=== PATIENT | female | born 1980 | race Caucasian/White ===

== ENCOUNTER 2017-03-02 14:18 | Emergency (ER) | payer OTHER ==
[2017-03-02 15:25] LABS: BASOPHIL 0.3 % (0-2); EOSINOPHIL 3.4 % (0-5); HCT 38.8 % (37.0-47.0); HGB 12.9 g/dl (12.5-16.0); LYMPHOCYTE 43.9 % (15-48); MCH 30.6 pg (25.0-31.0); MCHC 33.2 g/dL (32.0-36.0); MCV 92.2 fL (78.0-100.0); MONOCYTE 8.6 % (0-12); MPV 10.6 fL (6.0-9.5); NEUTROPHIL 43.8 % (41-80); PLT 290 K/uL (150-400); RBC 4.21 M/uL (4.20-5.40); RDW 13.9 % (11.5-14.0)
[2017-03-02 15:26] LABS: BILIRUBIN 1+ mg/dL (NEGATIVE); BLOOD NEGATIVE Ery/uL (NEGATIVE); CLARITY CLEAR (CLEAR); COLOR YELLOW (YELLOW); GLUCOSE (U) NORMAL (NORMAL); KETONE (U) TRACE mg/dL (NEGATIVE); LEUKOCYTES 1+ Leu/uL (NEGATIVE); NITRITE NEGATIVE (NEGATIVE); PROTEIN NEGATIVE (NEGATIVE); SPECIFIC GRAVITY >=1.030 (1.001-1.030); pH 5.5 (5.0-9.0)
[2017-03-02 15:30] LABS: BACTERIA 2+
[2017-03-02 15:45] LABS: ALBUMIN 3.8 g/dL (3.5-5.0); BILIRUBIN - TOTAL 0.3 mg/dL (0.1-1.0); CREATININE 0.8 mg/dL (0.5-1.0); GLOBULIN (CALCULATION) 2.8 g/dL (2.2-4.2); POTASSIUM 3.6 mmol/L (3.5-5.1); TOTAL PROTEIN 6.6 g/dL (6.4-8.3)
== END 2017-03-02 18:27 | disposition home or self-care (01) ==
LOC: FER 14:18
PROVIDERS: Internal Medicine
DX: R10.11 Right upper quadrant pain (principal); G89.29 Other chronic pain; K21.9 Gastro-esophageal reflux disease without esophagitis; F41.9 Anxiety disorder, unspecified; Z79.899 Other long term (current) drug therapy
CPT/HCPCS: 36415; 80053; 81001; 82150; 83690; 85025; J1170; J2175

== ENCOUNTER 2021-08-23 10:09 | Emergency (ER) | payer SELFPAY ==
[2021-08-23 10:51] LABS: BASOPHIL 0.4 % (0-2); EOSINOPHIL 0.6 % (0-5); HCT 48.6 % (37.0-47.0); HGB 16.6 g/dl (12.5-16.0); LYMPHOCYTE 20.1 % (15-48); MCH 33.7 pg (25.0-31.0); MCHC 34.2 g/dL (32.0-36.0); MCV 98.8 fL (78.0-100.0); MPV 10.4 fL (6.0-9.5); NEUTROPHIL 69.5 % (41-80); NRBC 0; PLT 191 K/uL (150-400); RBC 4.92 M/uL (4.20-5.40); RDW 13.4 % (11.5-14.0); WBC 5.1 K/uL (4.0-10.5)
[2021-08-23 11:09] LABS: ALBUMIN 3.4 g/dL (3.4-5.0); BILIRUBIN - TOTAL 0.5 mg/dL (0.2-1.0); BUN/CREAT RATIO (CALC) 9.3 RATIO; CREATININE 0.75 mg/dL (0.51-0.95); GLOBULIN (CALCULATION) 3.9 g/dL; POTASSIUM 2.8 mmol/L (3.5-5.1); TOTAL PROTEIN 7.3 g/dL (6.4-8.2)
[2021-08-23 11:11] LABS: BILIRUBIN 2+ mg/dL (NEGATIVE); BLOOD 3+ Ery/uL (NEGATIVE); CLARITY CLEAR (CLEAR); COLOR YELLOW (YELLOW); GLUCOSE (U) NORMAL (NORMAL); LEUKOCYTES TRACE Leu/uL (NEGATIVE); NITRITE POSITIVE (NEGATIVE); PROTEIN 2+ mg/dL (NEGATIVE); pH 6.5 (5.0-9.0)
[2021-08-23 11:21] LABS: BACTERIA 2+; URINARY RBC TNTC
[2021-08-23 11:28] LABS: CORONAVIRUS 2019 SARS-COV-2 NEGATIVE (NEGATIVE); INFLUENZA A NAA NEGATIVE (NEGATIVE)
[2021-08-23] MEDS ORDERED: POTASSIUM CHLO20 ME1 PO (12:43)
[2021-08-23] MEDS ORDERED: IMODIUM2 MG PO (12:43)
[2021-08-23] MEDS ORDERED: CEPHALEXIN500 MG PO (12:43)
[2021-08-23] MEDS ORDERED: ONDANSETRON ODT4 MG PO (12:43)
== END 2021-08-23 13:27 | disposition home or self-care (01) ==
LOC: FER 10:09
PROVIDERS: Emergency Medicine
DX: N39.0 Urinary tract infection, site not specified (principal); E87.6 Hypokalemia; R11.2 Nausea with vomiting, unspecified; R19.7 Diarrhea, unspecified; I10 Essential (primary) hypertension; J45.909 Unspecified asthma, uncomplicated; F17.200 Nicotine dependence, unspecified, uncomplicated; E66.9 Obesity, unspecified; Z20.822 Contact with and (suspected) exposure to COVID-19; Z91.14 Patient's other noncompliance with medication regimen
CPT/HCPCS: 36415; 80053; 81001; 85025; J0696; J2405; J7030; U0002